=== PATIENT | male | born 1960 | race Caucasian/White ===

== ENCOUNTER 2017-09-27 19:07 | Emergency (ER) | payer SELFPAY ==
[~2017-09-27] VITALS: Ht 157.5 cm; Wt 77.1 kg
[~2017-09-27 19:07] MED LIST: ACHD5005 PO; ALLP100T PO; HYDR-3729 PO; METF1000 PO; METF750T2 PO; SULF1TAB34 PO
--- OUTSIDE RECORDS SUMMARY | 2017-09-27 19:13 | XMS REPORT | Continuity of Care Document ---
Author Author Formerly [facility], [facility] Address Unknown Phone Unavailable Allergies Active Description Code Type Severity Reaction Onset Reported/Identified Relationship to Patient Clinical Status Yes No Known Drug Allergies [id number] Drug Allergy Unknown N/A 01/10/2013 Medications There is no data. Problems Date Dx Coded Attending Type Code Diagnosis Diagnosed By 01/08/2009 682.0 CELLULITIS OF THE FACE 01/08/2009 682.0 CELLULITIS OF THE FACE 01/08/2009 SHARA BURRELL APRN 682.0 CELLULITIS OF THE FACE 01/08/2009 682.0 CELLULITIS OF THE FACE 01/08/2009 SHARA BURRELL APRN 682.0 CELLULITIS OF THE FACE 01/08/2009 682.0 CELLULITIS OF THE FACE 01/08/2009 682.0 CELLULITIS OF THE FACE 01/08/2009 682.0 CELLULITIS OF THE FACE 01/08/2009 682.0 CELLULITIS OF THE FACE 01/08/2009 682.0 CELLULITIS OF THE FACE 01/08/2009 RUPESH SINGH DO 682.0 CELLULITIS OF THE FACE 01/08/2009 SHARA BURRELL APRN 682.0 CELLULITIS OF THE FACE 01/08/2009 SHARA BURRELL APRN 682.0 CELLULITIS OF THE FACE 01/08/2009 682.0 CELLULITIS OF THE FACE 01/28/2011 719.41 PAIN IN JOINT INVOLVING SHOULDER REGION 01/28/2011 719.41 PAIN IN JOINT INVOLVING SHOULDER REGION 01/28/2011 SHARA BURRELL APRN 719.41 PAIN IN JOINT INVOLVING SHOULDER REGION 01/28/2011 719.41 PAIN IN JOINT INVOLVING SHOULDER REGION 01/28/2011 SHARA BURRELL APRN 719.41 PAIN IN JOINT INVOLVING SHOULDER REGION 01/28/2011 719.41 PAIN IN JOINT INVOLVING SHOULDER REGION 01/28/2011 719.41 PAIN IN JOINT INVOLVING SHOULDER REGION 01/28/2011 719.41 PAIN IN JOINT INVOLVING SHOULDER REGION 01/28/2011 719.41 PAIN IN JOINT INVOLVING SHOULDER REGION 01/28/2011 719.41 PAIN IN JOINT INVOLVING SHOULDER REGION 01/28/2011 RUPESH SINGH DO 719.41 PAIN IN JOINT INVOLVING SHOULDER REGION 01/28/2011 SHARA BURRELL APRN 719.41 PAIN IN JOINT INVOLVING SHOULDER REGION 01/28/2011 SHARA BURRELL APRN 719.41 PAIN IN JOINT INVOLVING SHOULDER REGION 01/28/2011 719.41 PAIN IN JOINT INVOLVING SHOULDER REGION 07/08/2011 250.00 DIABETES II CONTROLLED (UNCOMPLICATED) 07/08/2011 300.00 ANXIETY UNSPEC 07/08/2011 250.00 DIABETES II CONTROLLED (UNCOMPLICATED) 07/08/2011 300.00 ANXIETY UNSPEC 07/08/2011 SHARA BURRELL APRN 250.00 DIABETES II CONTROLLED (UNCOMPLICATED) 07/08/2011 SHARA BURRELL APRN 300.00 ANXIETY UNSPEC 07/08/2011 250.00 DIABETES II CONTROLLED (UNCOMPLICATED) 07/08/2011 300.00 ANXIETY UNSPEC 07/08/2011 SHARA BURRELL APRN 250.00 DIABETES II CONTROLLED (UNCOMPLICATED) 07/08/2011 SHARA BRURELL APRN 300.00 ANXIETY UNSPEC 07/08/2011 250.00 DIABETES II CONTROLLED (UNCOMPLICATED) 07/08/2011 300.00 ANXIETY UNSPEC 07/08/2011 250.00 DIABETES II CONTROLLED (UNCOMPLICATED) 07/08/2011 300.00 ANXIETY UNSPEC 07/08/2011 250.00 DIABETES II CONTROLLED (UNCOMPLICATED) 07/08/2011 300.00 ANXIETY UNSPEC 07/08/2011 250.00 DIABETES II CONTROLLED (UNCOMPLICATED) 07/08/2011 300.00 ANXIETY UNSPEC 07/08/2011 250.00 DIABETES II CONTROLLED (UNCOMPLICATED) 07/08/2011 300.00 ANXIETY UNSPEC 07/08/2011 RUPESH SINGH DO 250.00 DIABETES II CONTROLLED (UNCOMPLICATED) 07/08/2011 RUPESH SINGH DO 300.00 ANXIETY UNSPEC 07/08/2011 SHARA BURRELL APRN 250.00 DIABETES II CONTROLLED (UNCOMPLICATED) 07/08/2011 SHARA BURRELL APRN 300.00 ANXIETY UNSPEC 07/08/2011 SHARA BURRELL APRN 250.00 DIABETES II CONTROLLED (UNCOMPLICATED) 07/08/2011 SHARA BURRELL APRN 300.00 ANXIETY UNSPEC 07/08/2011 250.00 DIABETES II CONTROLLED (UNCOMPLICATED) 07/08/2011 300.00 ANXIETY UNSPEC 09/19/2012 274.9 GOUT 09/19/2012 296.90 MOOD DISORDER 09/19/2012 477.9 RHINITIS 09/19/2012 SHARA BURRELL APRN T 274.9 GOUT 09/19/2012 SHARA BURRELL APRN T 296.90 MOOD DISORDER 09/19/2012 SHARA BURRELL APRN 477.9 RHINITIS 09/19/2012 274.9 GOUT 09/19/2012 296.90 MOOD DISORDER 09/19/2012 477.9 RHINITIS 09/19/2012 SHARA BURRELL APRN T 274.9 GOUT 09/19/2012 SHARA BURRELL APRN T 296.90 MOOD DISORDER 09/19/2012 SHARA BURRELL APRN 477.9 RHINITIS 09/19/2012 274.9 GOUT 09/19/2012 296.90 MOOD DISORDER 09/19/2012 477.9 RHINITIS 09/19/2012 274.9 GOUT 09/19/2012 296.90 MOOD DISORDER 09/19/2012 477.9 RHINITIS 09/19/2012 274.9 GOUT 09/19/2012 296.90 MOOD DISORDER 09/19/2012 477.9 RHINITIS 09/19/2012 274.9 GOUT 09/19/2012 296.90 MOOD DISORDER 09/19/2012 477.9 RHINITIS 09/19/2012 274.9 GOUT 09/19/2012 296.90 MOOD DISORDER 09/19/2012 477.9 RHINITIS 09/19/2012 SINGH DO, RUPESH K 274.9 GOUT 09/19/2012 SINGH DO, RUPESH K 296.90 MOOD DISORDER 09/19/2012 SINGH DO, RUPESH K 477.9 RHINITIS 09/19/2012 SHARA BURRELL APRN T 274.9 GOUT 09/19/2012 SHARA BURRELL APRN T 296.90 MOOD DISORDER 09/19/2012 SHARA BURRELL APRN T 477.9 RHINITIS 09/19/2012 SHARA BURRELL APRN T 274.9 GOUT 09/19/2012 SHARA BURRELL APRN 296.90 MOOD DISORDER 09/19/2012 SHARA BURRELL APRN 477.9 RHINITIS 10/19/2012 780.93 MEMORY LOSS 10/19/2012 786.05 SHORTNESS OF BREATH 10/19/2012 SHARA BURRELL APRN 780.93 MEMORY LOSS 10/19/2012 SHARA BURRELL APRN 786.05 SHORTNESS OF BREATH 10/19/2012 780.93 MEMORY LOSS 10/19/2012 786.05 SHORTNESS OF BREATH 10/19/2012 780.93 MEMORY LOSS 10/19/2012 786.05 SHORTNESS OF BREATH 10/19/2012 780.93 MEMORY LOSS 10/19/2012 786.05 SHORTNESS OF BREATH 10/19/2012 780.93 MEMORY LOSS 10/19/2012 786.05 SHORTNESS OF BREATH 10/19/2012 780.93 MEMORY LOSS 10/19/2012 786.05 SHORTNESS OF BREATH 10/19/2012 RUPESH SINGH DO 780.93 MEMORY LOSS 10/19/2012 RUPESH SINGH DO 786.05 SHORTNESS OF BREATH 10/19/2012 SHARA BURRELL APRN 780.93 MEMORY LOSS 10/19/2012 SHARA BURRELL APRN 786.05 SHORTNESS OF BREATH 10/19/2012 SHARA BURRELL APRN 780.93 MEMORY LOSS 10/19/2012 SHARA BURRELL APRN 786.05 SHORTNESS OF BREATH 12/16/2012 780.57 SLEEP APNEA 12/16/2012 780.57 SLEEP APNEA 12/16/2012 780.57 SLEEP APNEA 12/16/2012 780.57 SLEEP APNEA 12/16/2012 780.57 SLEEP APNEA 12/16/2012 RUPESH SINGH DO 780.57 SLEEP APNEA 12/16/2012 SHARA BURRELL APRN 780.57 SLEEP APNEA 12/16/2012 SHARA BURRELL APRN 780.57 SLEEP APNEA 01/10/2013 SHARA BURRELL [employer] INST[employer] Ot 327.23 OBSTRUCTIVE SLEEP APNEA (ADULT) (PEDIATR 01/11/2013 CYDNEY CASTELLANOS DO Ot 780.2 SYNCOPE AND COLLAPSE 01/11/2013 CYDNEY CASTELLANOS DO Ot 780.39 OTHER CONVULSIONS 01/16/2013 244.9 HYPOTHYROIDISM 01/16/2013 244.9 HYPOTHYROIDISM 01/16/2013 244.9 HYPOTHYROIDISM 01/16/2013 244.9 HYPOTHYROIDISM 01/16/2013 RUPESH SINGH DO 244.9 HYPOTHYROIDISM 01/16/2013 SHARA BURRELL APRN 244.9 HYPOTHYROIDISM 01/16/2013 SHARA BURRELL APRN 244.9 HYPOTHYROIDISM 02/01/2013 304.40 AMPHETAMINE DEPENDENCE 02/01/2013 304.40 AMPHETAMINE DEPENDENCE 02/01/2013 304.40 AMPHETAMINE DEPENDENCE 02/01/2013 RUPESH SINGH DO 304.40 AMPHETAMINE DEPENDENCE 02/01/2013 SHARA BURRELL APRN 304.40 AMPHETAMINE DEPENDENCE 02/01/2013 SHARA BURRELL APRN 304.40 AMPHETAMINE DEPENDENCE 02/17/2013 294.9 OR COG DIS NOS 02/17/2013 294.9 OR COG DIS NOS 02/17/2013 RUPESH SINGH DO 294.9 OR COG DIS NOS 02/17/2013 SHARA BURRELL APRN 294.9 OR COG DIS NOS 02/17/2013 SHARA BURRELL APRN 294.9 OR COG DIS NOS 02/28/2013 726.71 ACHILLES BURSITIS OR TENDINITIS 02/28/2013 RUPESH SINGH DO 726.71 ACHILLES BURSITIS OR TENDINITIS 02/28/2013 SHARA BURRELL APRN 726.71 ACHILLES BURSITIS OR TENDINITIS 02/28/2013 SHARA BURRELL APRN 726.71 ACHILLES BURSITIS OR TENDINITIS 04/21/2013 716.90 ARTHRITIS/ ARTHROPATHY, UNSPECIFIED 04/21/2013 RUPESH SINGH DO 716.90 ARTHRITIS/ ARTHROPATHY, UNSPECIFIED 04/21/2013 SHARA BURRELL APRN 716.90 ARTHRITIS/ ARTHROPATHY, UNSPECIFIED 04/21/2013 SHARA BURRELL APRN 716.90 ARTHRITIS/ ARTHROPATHY, UNSPECIFIED 05/11/2013 SHARA BURRELL [facility] Ot 327.23 OBSTRUCTIVE SLEEP APNEA (ADULT) (PEDIATR 06/09/2013 RUPESH SINGH DO 327.23 SLEEP APNEA, OBSTRUCTIVE (ADULT/PED) 06/09/2013 SHARA BURRELL APRN 327.23 SLEEP APNEA, OBSTRUCTIVE (ADULT/PED) 06/09/2013 SHARA BURRELL APRN 327.23 SLEEP APNEA, OBSTRUCTIVE (ADULT/PED) 02/15/2015 Ot 250.00 02/15/2015 Ot 780.93 08/06/2016 Ot 250.00 DIAB MANNIE WO COMPL, TYPE II OR UNSPEC TY 08/06/2016 Ot 780.93 MEMORY LOSS 08/06/2016 SYEDA MARTÍNEZ MD ([facility]) Ot 275.49 OTH DISORD/CALCIUM METABOLISM 08/06/2016 SYEDA MARTÍNEZ MD ([facility]) Ot 712.36 CHONDROCALCIN NOS-L/LEG 08/06/2016 SYEDA MARTÍNEZ MD ([facility]) Ot 715.31 LOC OSTEOARTH NOS-SHLDER 08/06/2016 SYEDA MARTÍNEZ MD ([facility]) Ot 715.36 LOC OSTEOARTH NOS-L/LEG 08/06/2016 SYEDA MARTÍNEZ MD ([facility]) Ot V70.3 MED EXAM NEC-ADMIN PURP 08/06/2016 Ot 250.00 DIAB MANNIE WO COMPL, TYPE II OR UNSPEC TY 08/06/2016 Ot 780.93 MEMORY LOSS 08/06/2016 SYEDA MARTÍNEZ MD ([facility]) Ot 275.49 OTH DISORD/CALCIUM METABOLISM 08/06/2016 SYEDA MARTÍNEZ MD ([facility]) Ot 712.36 CHONDROCALCIN NOS-L/LEG 08/06/2016 SYEDA MARTÍNEZ MD ([facility]) Ot 715.31 LOC OSTEOARTH NOS-SHLDER 08/06/2016 SYEDA MARTÍNEZ MD ([facility]) Ot 715.36 LOC OSTEOARTH NOS-L/LEG 08/06/2016 SYEDA MARTÍNEZ MD ([facility]) Ot V70.3 MED EXAM NEC-ADMIN PURP 08/06/2016 VANNESSA DE LEON, RICHIE Barrera Ot E11.9 TYPE 2 DIABETES MELLITUS WITHOUT COMPLIC 08/06/2016 VANNESSA DE LEON, RICHIE Barrera Ot L02.411 CUTANEOUS ABSCESS OF RIGHT AXILLA 08/07/2016 VANNESSA DE LEON, RICHIE Barrera Ot E11.9 TYPE 2 DIABETES MELLITUS WITHOUT COMPLIC 08/07/2016 VANNESSA DE LEON, RICHIE Barrera Ot L02.411 CUTANEOUS ABSCESS OF RIGHT AXILLA 08/07/2016 VANNESSA DE LEON, RICHIE Barrera Ot E11.9 TYPE 2 DIABETES MELLITUS WITHOUT COMPLIC 08/07/2016 VANNESSA DE LEON, RICHIE Barrera Ot L02.411 CUTANEOUS ABSCESS OF RIGHT AXILLA 08/23/2016 Ot 250.00 DIAB MANNIE WO COMPL, TYPE II OR UNSPEC TY 08/23/2016 Ot 780.93 MEMORY LOSS 08/23/2016 SYEDA MARTÍNEZ MD ([facility]) Ot 275.49 OTH DISORD/CALCIUM METABOLISM 08/23/2016 SYEDA MARTÍNEZ MD ([facility]) Ot 712.36 CHONDROCALCIN NOS-L/LEG 08/23/2016 SYEDA MARTÍNEZ MD ([facility]) Ot 715.31 LOC OSTEOARTH NOS-SHLDER 08/23/2016 SYEDA MARTÍNEZ MD ([facility]) Ot 715.36 LOC OSTEOARTH NOS-L/LEG 08/23/2016 SYEDA MARTÍNEZ MD ([facility]) Ot V70.3 MED EXAM NEC-ADMIN PURP 08/24/2016 VANNESSA DE LEON, RICHIE Barrera Ot E11.9 TYPE 2 DIABETES MELLITUS WITHOUT COMPLIC 08/24/2016 VANNESSA DE LEON, RICHIE Barrera Ot L02.411 CUTANEOUS ABSCESS OF RIGHT AXILLA Procedures Code Description [place] [address] ROUTINE VENIPUNCTURE 09/21/2012 39018 A1C (IN-HOUSE) 09/21/2012 03697 CBC 09/21/2012 03532 LIPID PANEL 09/21/2012 85116 CMP 09/21/2012 9240050 GFR CALC (RESULT ONLY) 09/21/2012 59684 TSH 09/21/2012 16557 URIC ACID 09/21/2012 18593 MICRO ALBUMIN-IN HOUSE 10/19/2012 96959 URINE DRUG SCREEN (IN-HOUSE ) 10/19/[address] HEAD/BRAIN W/O & W/DYE 10/20/2012 35534 XRAY CHEST 2 VIEW 10/20/2012 24613 URINE AMPHETAMINE GC/MS 10/20/2012 52851 URINE METHAMPHETAMINE GC/MS 10/20/2012 13960 SLEEP STUDY 11/28/2012 95273 ROUTINE VENIPUNCTURE 01/16/2013 39110 URINE DRUG SCREEN (IN-HOUSE ) 01/16/2013 32840 A1C (IN-HOUSE) 01/16/2013 90503 TSH 01/16/2013 03210 PSYCH DIAGNOSTIC EVALUATION 02/02/2013 53475 PSYTX PT&/FAMILY 30 MINUTES 02/21/2013 69857 PSYCHO TESTING 1 HR W TECH 02/21/2013 54405 A1C (IN-HOUSE) 04/21/2013 99537 URINE DRUG SCREEN (IN-HOUSE ) 04/21/2013 86280 ROUTINE VENIPUNCTURE 12/27/2013 18350 A1C (IN-HOUSE) 12/27/2013 30034 CBC 12/27/2013 13656 CMP 12/27/2013 34476 LIPID PANEL 12/27/2013 91479 URIC ACID 12/27/2013 3205990 GFR CALC (RESULT ONLY) 12/27/2013 06386 MICRO ALBUMIN-IN HOUSE 12/27/2013 62310 TSH 12/27/2013 Psychiatr [facility], [facility] 01/01/2014 Results Test Result Range Methicillin resistant Staphylococcus aureus (MRSA) screening culture - 12:25 Methicillin resistant Staphylococcus aureus (MRSA) screening culture NEG NRG Capillary blood glucose measurement by glucometer (mass/volume) - 08/06/16 12: 36 Capillary blood glucose measurement by glucometer (mass/volume) 167 mg/dL 70-110 Urine drug screening test - 08/06/16 13:35 Urine phencyclidine detection by screening method NEGATIVE NEGATIVE Urine benzodiazepines detection by screening method NEGATIVE NEGATIVE Urine cocaine detection NEGATIVE NEGATIVE Urine amphetamines detection by screening method POSITIVE NEGATIVE Urine methamphetamine detection by screening method POSITIVE NEGATIVE Urine cannabinoids detection by screening method POSITIVE NEGATIVE Urine opiates detection by screening method POSITIVE NEGATIVE Urine barbiturates detection NEGATIVE NEGATIVE Screening urine tricyclic antidepressants detection NEGATIVE NEGATIVE Urine methadone detection by screening method NEGATIVE NEGATIVE Urine oxycodone detection NEGATIVE NEGATIVE Urine propoxyphene detection NEGATIVE NEGATIVE Bacteria identification in isolate by anaerobe culture - 08/06/16 15:00 Bacteria identification in isolate by anaerobe culture NOANA NRG Gram stain microscopy - 08/06/16 15:00 GRAM STAIN RESULT MODERATE # WBC'S, NO BACTERIA OBSERVED NRG Bacteria identification in wound by culture - 08/06/16 15:00 Bacteria identification in wound by culture NG NRG Encounters ACCT No. Visit Date/Time Discharge Status Pt. Type Provider Facility Loc./Unit Complaint [id number] 12/27/2013 10:12:00 12/27/2013 23:59:59 CLS Outpatient INDRA URIAS SHARA Sean [id number] 08/29/2013 08:05:00 08/29/2013 23:59:59 CLS Outpatient SHARA BURRELL APRN [id number] 06/09/2013 09:05:00 06/09/2013 23:59:59 CLS Outpatient RUPESH SINGH DO [id number] 11/09/2012 17:28:00 11/09/2012 23:59:59 CLS Outpatient SHARA BURRELL APRN [id number] 10/19/2012 16:11:00 10/19/2012 23:59:59 CLS Outpatient [id number] 09/21/2012 07:52:00 09/21/2012 23:59:59 CLS Outpatient INDRA URIAS SHARA Sean [id number] 09/19/2012 11:30:00 09/19/2012 23:59:59 CLS Outpatient [id number] 07/08/2011 10:42:00 07/08/2011 23:59:59 CLS Outpatient [id number] 07/08/2011 10:42:00 07/08/2011 23:59:59 CLS Outpatient [id number] 04/21/2013 09:50:00 Document Registration [id number] 02/20/2013 15:53:00 Document Registration [id number] 02/01/2013 13:12:00 Document Registration [id number] 01/16/2013 10:50:00 Document Registration [id number] 11/28/2012 00:00:00 Document Registration [id number] 08/06/2016 12:09:00 08/06/2016 17:00:00 DIS Outpatient VANNESSA DE LEON, RICHIE Barrera [facility] SDC RIGHT AXILLARY ABSCESS [id number] 02/15/2015 12:17:00 02/15/2015 23:59:59 CLS Outpatient TANYA DE LEON, SYEDA Weber (DDU) [facility] RAD DDU [id number] 05/10/2013 20:56:00 05/11/2013 07:00:00 DIS Outpatient SHARA BURRELL [facility] SLEEP TJ,SNORING [id number] 01/10/2013 22:10:00 01/11/2013 00:17:00 DIS Emergency JASMIN CYDNEY MICHELLE K [facility] ER SEIZURE [id number] 01/10/2013 21:07:00 01/10/2013 22:00:00 DIS Outpatient SHARA BURRELL [facility] SLEEP SLEEP APNEA [id number] 10/27/2012 09:21:00 Document Registration
[2017-09-27] MEDS ORDERED: ACETAMINOPHEN 500 MG TAB (TYLENOL) PO STA (21:15)
[2017-09-27] MEDS ORDERED: RT-ALBUTEROL SULF 2.5 MG/3 ML PRE-MIX VIAL INH STA (21:15)
[2017-09-27] MEDS ORDERED: NS IV 1000 ML 1,000 ML IV ONE ×2 (21:15→22:23)
--- NOTE | 2017-09-27 21:19 | ED Cough/URI ---
General Chief Complaint: Cough/Cold/Flu Symptoms Stated Complaint: FLU SYMPTOMS X1 WEEK Nursing Triage Note: PT REPORTS COUGH/COLD/BODY ACHES, FEVER X 3-4 DAYS. PT ALSO REPORTS BACK PAIN. Source: patient, family Exam Limitations: no limitations History of Present Illness Date Seen by Provider: Sep 27, 2017 Time Seen by Provider: 20:59 Initial Comments 57 yo male patient presents to the ED with c/o cough, congestion, wheezing, bodyaches, and fever for the last 3-4 days. Also c/o back pain, frequency of urination, and elevated blood sugars. patient states he has been using his friends metformin, but has not seen his practitioner for approximately 3 years. Patient states he is supposed to use a CPAP, BUT DOES NOT USE ONE. Timing/Duration: constant, other (3-4 days) Severity/Quality: productive cough (clear productive cough) Prior Episodes/Possible Cause: no prior episodes Modifying Factors: Worse With Coughing Allergies and Home Medications Allergies Coded Allergies: No Known Drug Allergies (Unverified , 01/10/13) Home Medications Hydrocodone Bit/Acetaminophen 1 Each Tablet, 1-2 TAB PO 4-6HR PRN for PAIN, #20 Prescribed by: RICHIE HURD on 08/06/16 1508 Hydrocodone/Acetaminophen 1 Each Tablet, 1 EACH PO Q4H PRN for PAIN, (Reported) Metformin HCl 1,000 Mg Tablet, 1,000 MG PO BID, (Reported) Sulfamethoxazole/Trimethoprim 1 Each Tablet, 1 EACH PO BID, (Reported) Constitutional: see HPI, chills, fever, malaise EENTM: see HPI, nose congestion, throat pain, other (rhinorrhea and sneezing), No ear discharge, No ear pain Respiratory: cough, No dyspnea on exertion, phlegm, short of breath ( occasional sob), wheezing Cardiovascular: No chest pain, No edema, No palpitations, No syncope Gastrointestinal: No abdominal pain, No constipation, No diarrhea, loss of appetite, No nausea, No vomiting Genitourinary: see HPI, No decreased output, No dysuria, frequency, No hematuria, No pain Musculoskeletal: see HPI, back pain, other (generalized body aches) Skin: no symptoms reported Psychiatric/Neurological: Headache, Denies Numbness, Denies Paresthesia, Denies Tingling, Denies Weakness (denies one-sided weakness) All Other Systems Reviewed Negative Unless Noted: Yes (Negative excepted noted.) Past Crwimbc-Amtagu-Xfccko Hx Patient Social History Alcohol Use: Past History Recreational Drug Use: No Smoking Status: Current Everyday Smoker Type Used: Cigarettes Recent Foreign Travel: No Contact w/Someone Who Travel: No Recent Infectious Disease Expo: No Recent Hopitalizations: No Physical Abuse: No Sexual Abuse: No Mistreated: No Fear: No Surgeries History of Surgeries: Yes (CHEST-TUBE, SKULL FX, L KNEE) Respiratory History of Respiratory Disorde: Yes (LEFT LUNG SCARRED FROM PNEUMONIA) Respiratory Disorders: Sleep Apnea, COPD Currently Using CPAP: No Cardiovascular History of Cardiac Disorders: No Neurological History of Neurological Disord: Yes Gastrointestinal History of Gastrointestinal Di: Yes Gastrointestinal Disorders: Gastroesophageal Reflux, Hepatitis Musculoskeletal History of Musculoskeletal Dis: Yes (CHRONIC BILATERAL SHOULDER PAIN,LEFT KNEE PAIN) Musculoskeletal Disorders: Chronic Back Pain, Gout Endocrine History of Endocrine Disorders: Yes Endocrine Disorders: Hypothyroidsim, Diabetes, Non-Insulin dep Cancer History of Cancer: No Psychosocial History of Psychiatric Problem: Yes Behavioral Health Disorders: Anxiety, Depression Suicide Risk Score: 0 Integumentary History of Skin or Integumenta: No Blood Transfusions History of Blood Disorders: No Reviewed Nursing Assessment Reviewed/Agree w Nursing PMH: Yes Family Medical History Significant Family History: No Pertinent Family Hx Physical Exam Vital Signs Vital Sign - Last 12Hours 09/27/17 19:47 Temp 99.4 Pulse 104 Resp 20 B/P (MAP) 119/98 (105) Pulse Ox 92 O2 Delivery Room Air Capillary Refill : Less Than 3 Seconds General Appearance: WD/WN, no apparent distress HEENT: PERRL/EOMI, TMs normal, pharyngeal erythema, No tonsillar exudate, other (positive nasal congestion) Neck: non-tender, full range of motion, supple, lymphadenopathy (R), lymphadenopathy (L) Respiratory: no respiratory distress, no accessory muscle use, crackles, wheezing, expiration Cardiovascular: normal peripheral pulses, no edema, no murmur, tachycardia Gastrointestinal: normal bowel sounds, non tender, soft, no organomegaly, no pulsatile mass, No distended Extremities: no pedal edema, no calf tenderness, normal capillary refill Neurologic/Psychiatric: hydraulics engineer II-XII nml as tested, no motor/sensory deficits, alert, normal mood/affect, oriented x 3 Skin: normal color, warm/dry Progress/Results/Core Measures Suspected Sepsis Recent Fever Within 48 Hours: No Infection Criteria Present: Suspected New Infection New/Unexplained Altered Menta: No Sepsis Screen: No Definite Risk Sepsis Diagnosis: SIRS Temperature:99.4 Pulse: 104 Respiratory Rate: 20 Laboratory Tests 09/27/17 21:45: White Blood Count 9.7 Blood Pressure 119 /98 Mean: 105 Laboratory Tests 09/27/17 21:45: Creatinine 0.73, Platelet Count 221, Total Bilirubin 0.5 Results/Orders Lab Results Laboratory Tests Test 09/27/17 21:45 Range/Units White Blood Count 9.7 4.3-11.0 10^3/uL Red Blood Count 4.81 4.35-5.85 10^6/uL Hemoglobin 14.6 13.3-17.7 G/DL Hematocrit 41 40-54 % Mean Corpuscular Volume 85 80-99 FL Mean Corpuscular Hemoglobin 30 25-34 PG Mean Corpuscular Hemoglobin Concent 36 32-36 G/DL Red Cell Distribution Width 12.3 10.0-14.5 % Platelet Count 221 130-400 10^3/uL Mean Platelet Volume 9.9 7.4-10.4 FL Neutrophils (%) (Auto) 78 H 42-75 % Lymphocytes (%) (Auto) 15 12-44 % Monocytes (%) (Auto) 7 0-12 % Eosinophils (%) (Auto) 0 0-10 % Basophils (%) (Auto) 0 0-10 % Neutrophils # (Auto) 7.6 1.8-7.8 X 10^3 Lymphocytes # (Auto) 1.4 1.0-4.0 X 10^3 Monocytes # (Auto) 0.7 0.0-1.0 X 10^3 Eosinophils # (Auto) 0.0 0.0-0.3 10^3/uL Basophils # (Auto) 0.0 0.0-0.1 10^3/uL Sodium Level 128 L 135-145 MMOL/L Potassium Level 4.0 3.6-5.0 MMOL/L Chloride Level 95 L 98-107 MMOL/L Carbon Dioxide Level 21 21-32 MMOL/L Anion Gap 12 5-14 MMOL/L Blood Urea Nitrogen 9 7-18 MG/DL Creatinine 0.73 0.60-1.30 MG/DL Estimat Glomerular Filtration Rate > 60 BUN/Creatinine Ratio 12 Glucose Level 250 H 70-105 MG/DL Calcium Level 8.6 8.5-10.1 MG/DL Total Bilirubin 0.5 0.1-1.0 MG/DL Aspartate Amino Transf (AST/SGOT) 24 5-34 U/L Alanine Aminotransferase (ALT/SGPT) 26 0-55 U/L Alkaline Phosphatase 107 40-136 U/L Total Protein 7.1 6.4-8.2 GM/DL Albumin 3.5 3.2-4.5 GM/DL Micro Results Microbiology 09/27/17 Influenza Types A,B Antigen (MELLO) - Final, Complete My Orders Orders - MIRIAM HARMON Cbc With Automated Diff (09/27/17 21:15) Comprehensive Metabolic Panel (09/27/17 21:15) Ua Culture If Indicated (09/27/17 21:15) Accucheck Stat ONCE (09/27/17 21:15) Saline Lock/Iv-Start (09/27/17 21:15) Albuterol Pre-Mix Nebs (Rt) (Proventil (09/27/17 21:15) Chest 1 View, Ap/Pa Only (09/27/17 21:15) Ns Iv 1000 Ml (Sodium Chloride 0.9%) (09/27/17 21:15) Acetaminophen Tablet (Tylenol Tablet) (09/27/17 21:15) Svn Sm Volume Nebulizer Rt-Rfs (09/27/17 21:15) Ns Iv 1000 Ml (Sodium Chloride 0.9%) (09/27/17 22:23) Medications Given in ED Current Medications Medications Dose Ordered Sig/Oanh Route Start Time Stop Time Status Last Admin Dose Admin Sodium Chloride 1,000 ml @ 0 mls/hr Q0M ONCE IV 09/27/17 21:15 09/27/17 21:19 DC 09/27/17 21:46 0 MLS/HR Vital Signs/I&O Vital Sign - Last 12Hours 09/27/17 09/27/17 09/27/17 19:47 19:47 21:53 Temp 99.4 Pulse 104 Resp 20 B/P (MAP) 119/98 (105) Pulse Ox 92 94 O2 Delivery Room Air Room Air Capillary Refill : Less Than 3 Seconds Blood Pressure Mean: 105 Diagnostic Imaging Diagonstic Imaging: Xray Plain Films/CT/US/NM/MRI: chest Departure Impression Impression: Primary Impression: Influenza A Additional Impressions: Uncontrolled diabetes mellitus Hyponatremia Disposition: 01 HOME, SELF-CARE Condition: Improved Departure-Patient Inst. Decision time for Depature: 22:40 Referrals: NO,LOCAL PHYSICIAN (PCP/Family) Primary Care Physician Patient Instructions: Diabetes Diet , Diabetes Type 2 (DC), Flu, Adult (DC) Add. Discharge Instructions: All discharge instructions reviewed with patient and/or family. Voiced understanding. Medications as directed. Tylenol extra strength over-the- counter as directed for pain or fever. Ibuprofen 800 mg by mouth every 8 hours as needed for pain or fever. Cool humidifier as needed. [id number] decongestants and antihistamines as needed. Follow-up with the family practitioner of your choice this week to establish care, repeat labs, and further management. Call tomorrow morning for appointment time. Return to the emergency department for worsened symptoms, chest pain, shortness of air, headache, changes in vision, changes in behavior, slurred speech, one-sided weakness, facial drooping, or any other concerns. Work/School Note: [employer] Listing MIRIAM HARMON Sep 27, 2017 21:19
[2017-09-27 22:07] LABS: BASOPHILS % (AUTO) 0 % (0-10); EOSINOPHILS % (AUTO) 0 % (0-10); HEMATOCRIT 41 % (40-54); HEMOGLOBIN 14.6 G/DL (13.3-17.7); LYMPHOCYTES # (AUTO) 1.4 X 10^3 (1.0-4.0); LYMPHOCYTES % (AUTO) 15 % (12-44); MEAN CORPUSCULAR HEMOGLOBIN 30 PG (25-34); MEAN CORPUSCULAR HGB CONC 36 G/DL (32-36); MEAN CORPUSCULAR VOLUME 85 FL (80-99); MEAN PLATELET VOLUME 9.9 FL (7.4-10.4); MONOCYTES # (AUTO) 0.7 X 10^3 (0.0-1.0); MONOCYTES % (AUTO) 7 % (0-12); NEUTROPHILS # (AUTO) 7.6 X 10^3 (1.8-7.8); NEUTROPHILS % (AUTO) 78 % (42-75); PLATELET COUNT 221 10^3/uL (130-400); RED BLOOD COUNT 4.81 10^6/uL (4.35-5.85); RED CELL DISTRIBUTION WIDTH 12.3 % (10.0-14.5); WHITE BLOOD COUNT 9.7 10^3/uL (4.3-11.0)
[2017-09-27 22:21] LABS: ALANINE AMINOTRANSFERASE 26 U/L (0-55); ALBUMIN 3.5 GM/DL (3.2-4.5); ALKALINE PHOSPHATASE 107 U/L (40-136); BILIRUBIN,TOTAL 0.5 MG/DL (0.1-1.0); BUN/CREATININE RATIO 12; CALCIUM 8.6 MG/DL (8.5-10.1); CARBON DIOXIDE 21 MMOL/L (21-32); CHLORIDE 95 MMOL/L (98-107); CREATININE SERUM 0.73 MG/DL (0.60-1.30); GFR ESTIMATED > 60; GLUCOSE 250 MG/DL (70-105); SODIUM 128 MMOL/L (135-145); TOTAL PROTEIN 7.1 GM/DL (6.4-8.2)
[2017-09-27 22:40] LABS: BILIRUBIN,URINE NEGATIVE (NEGATIVE); CLARITY,URINE CLEAR; COLOR,URINE YELLOW; GLUCOSE, URINE (UA) 3+ (NEGATIVE); KETONES,URINE NEGATIVE (NEGATIVE); LEUKOCYTE ESTERASE ,URINE NEGATIVE (NEGATIVE); NITRITE,URINE NEGATIVE (NEGATIVE); PH,URINE 7 (5-9); PROTEIN,URINE 1+ (NEGATIVE); UROBILINOGEN,URINE NORMAL (NORMAL)
[2017-09-27 22:51] LABS: SQUAMOUS EPITHELIAL CELL,UR 0-2 /HPF
[2017-09-27] MEDS ORDERED: RX-ALBUTEROL INHALER (PROAIR) 8 GM IH STA (23:24)
[2017-09-27] MEDS ORDERED: METF1000 PO (23:26)
[2017-09-27] MEDS ORDERED: BENZ-13 PO (23:27)
[2017-09-27 23:41] VITALS: BP 120/87
--- NOTE | 2017-09-28 07:56 | Diagnostic Imaging Report ---
INDICATION: Cough and fever. Portable AP upright view of the chest is obtained. There is no previous study for comparison. FINDINGS: There is air trapping, bilaterally. Interstitial markings are prominent in both lungs. There is also prominence of central pulmonary vessels which can be related to COPD or pulmonary arterial hypertension. No pneumothorax or consolidation is identified and there is no significant pleural fluid. IMPRESSION: Findings are consistent with emphysema and probable COPD. If older studies are available, comparison would be useful. Otherwise, no definite acute abnormality is seen. Dictated by: Dictated on workstation # [id number]
== END 2017-09-27 23:41 | disposition home or self-care (01) ==
LOC: EDUNIT# 19:07 → ER 19:09
DX: J10.1 Influenza due to other identified influenza virus with other respiratory manifestations (principal); E11.9 Type 2 diabetes mellitus without complications; E87.1 Hypo-osmolality and hyponatremia; G47.30 Sleep apnea, unspecified; F41.9 Anxiety disorder, unspecified; F32.9 Major depressive disorder, single episode, unspecified; E03.9 Hypothyroidism, unspecified; M10.9 Gout, unspecified; K21.9 Gastro-esophageal reflux disease without esophagitis; J44.9 Chronic obstructive pulmonary disease, unspecified; F17.210 Nicotine dependence, cigarettes, uncomplicated; Z91.14 Patient's other noncompliance with medication regimen; Z87.01 Personal history of pneumonia (recurrent); Z79.84 Long term (current) use of oral hypoglycemic drugs; Z86.19 Personal history of other infectious and parasitic diseases
CPT/HCPCS: 36415; 71045; 80053; 81000; 85025; 87804; 94640; 96360

== ENCOUNTER → 2019-06-28 | Outpatient (CLI) | payer OTHER ==
[~2019-06-28] MED LIST changes: +BENZ100C18 PO; +METF-399 PO; -METF1000 PO
--- NOTE | 2019-06-28 16:51 | Diagnostic Imaging Report ---
INDICATION: Tobaccoism, chronic knee pain. EXAMINATION: PA and lateral chest. FINDINGS: Heart size and pulmonary vascularity are normal. Lungs are clear. There are no effusions or pneumothoraces. There is apical pleural scarring. IMPRESSION: Apical pleural scarring. No acute abnormality is seen in the chest. No significant change when compared to 09/27/2017. Dictated by: Dictated on workstation # [id number]
--- NOTE | 2019-06-28 17:01 | Diagnostic Imaging Report ---
EXAMINATION: Right knee radiographs, 3 views. Left knee radiographs, 3 views. COMPARISON: February 15, 2015. HISTORY: 59-year-old male, chronic bilateral knee pain. FINDINGS: There is chondrocalcinosis. The bones appear somewhat demineralized. There is severe patellofemoral compartment joint space loss on the left. There is no left knee joint effusion. There is mild right patellofemoral compartment joint space loss and mild narrowing of the right medial compartment. The additional joint compartments of the left knee are not significantly narrowed. There is no right knee joint effusion. There is no identified acute fracture. IMPRESSION: 1. Chondrocalcinosis which has multiple associations including calcium pyrophosphate dihydrate deposition disease. 2. There is severe and relatively isolated left patellofemoral compartment arthritis without left knee joint effusion which can be seen with CPPD. 3. Mild right medial and patellofemoral compartment arthritis. 4. The bones appear demineralized. Dictated by: Dictated on workstation # [id number]
== END ==
LOC: RT 14:30
PROVIDERS: ATTEND Surgery
DX: Z02.71 Encounter for disability determination (principal); J98.4 Other disorders of lung; M17.0 Bilateral primary osteoarthritis of knee; M11.262 Other chondrocalcinosis, left knee; M11.261 Other chondrocalcinosis, right knee
CPT/HCPCS: 71046; 94060

== ENCOUNTER 2022-08-17 13:08 | Emergency (ER) | payer SELFPAY ==
[~2022-08-17] VITALS: Ht 175.3 cm; Wt 72.5 kg
[2022-08-17] MEDS ORDERED: ONDANSETRON 4 MG/2 ML (SDV) Z0FRAN IVP ONE (14:15)
[2022-08-17] MEDS ORDERED: KETOROLAC 30 MG/ML VIAL IVP ONE (14:15)
--- NOTE | 2022-08-17 14:18 | ED Abdominal Pain ---
General Chief Complaint: Abdominal/GI Problems Stated Complaint: STOMACH AILMENT Nursing Triage Note: PT AMB TO TRIAGE WITH COMPLAINT OF ABD PAIN. STATES HE FEELS HE IS CONSTIPATED AND FULL UP TO HIS STOMACH. STATES ABD PAIN IS CAUSING HIM TO BE SOA. LAST USED METH 3-4 DAYS AGO. Source of Information: Patient Allergies and Home Medications Allergies Coded Allergies: No Known Drug Allergies (Unverified , 01/10/13) Patient Home Medication List Benzonatate (Tessalon Perles) 100 Mg Capsule, 100 MG PO Q8H PRN for COUGH Prescribed by: MIRIAM HARMON on 09/27/17 2327 Hydrocodone Bit/Acetaminophen (Lortab 5 Mg Tablet) 1 Each Tablet, 1-2 TAB PO 4- 6HR PRN for PAIN Prescribed by: RICHIE HURD on 08/06/16 1508 Hydrocodone/Acetaminophen (Lortab 5-325 mg Tablet) 1 Each Tablet, 1 EACH PO Q4H PRN for PAIN, (Reported) Entered as Reported by: BENITA MOSQUEDA on 08/06/16 1333 Metformin HCl (Metformin HCl) 1,000 Mg Tablet, 1,000 MG PO BID, (Reported) Entered as Reported by: BENITA MOSQUEDA on 08/06/16 1333 Metformin HCl (Metformin HCl) 1,000 Mg Tablet, 1,000 MG PO BID Prescribed by: MIRIAM HARMON on 09/27/17 2326 Sulfamethoxazole/Trimethoprim (Bactrim 400-80 mg Tablet) 1 Each Tablet, 1 EACH PO BID, (Reported) Entered as Reported by: BENITA MOSQUEDA on 08/06/16 1333 Past Qmxkebz-Kalvyl-Uldxlm Hx Patient Social History Tobacco Use?: Yes Tobacco type used: Cigarettes Smoking Status: Current Everyday Smoker Use of E-Cig and/or Vaping dev: No Substance use?: Yes Substance type: Methamphetamine Alcohol Use?: Yes Alcohol Frequency: Daily Pt feels they are or have been: No Immunizations Up To Date First/Initial COVID19 Vaccinat: NO Past Medical History Surgeries: Yes (CHEST-TUBE, SKULL FX, L KNEE) Respiratory: Yes (LEFT LUNG SCARRED FROM PNEUMONIA) Sleep Apnea, COPD Currently Using CPAP: No Cardiac: No Neurological: Yes Gastrointestinal: Yes Gastroesophageal Reflux, Hepatitis Musculoskeletal: Yes (CHRONIC BILATERAL SHOULDER PAIN,LEFT KNEE PAIN) Chronic Back Pain, Gout Endocrine: Yes Hypothyroidsim, Diabetes, Non-Insulin dep Cancer: No Psychosocial: Yes Anxiety, Depression Integumentary: No Blood Disorders: No Family Medical History No Pertinent Family Hx Physical Exam Vital Signs Vital Signs - First Documented 08/17/22 13:27 Temp 36.5 Pulse 105 Resp 22 B/P (MAP) 101/57 (72) Pulse Ox 97 O2 Delivery Room Air Capillary Refill : Less Than 3 Seconds Height/Weight/BMI Height: 5'2.00" Weight: 170lbs. 0.0oz. [id number]; 23.00 BMI Method:Stated Progress/Results/Core Measures Results/Orders Lab Results Laboratory Tests Test 08/17/22 14:05 08/17/22 14:21 Range/Units White Blood Count 11.9 H 4.3-11.0 10^3/uL Red Blood Count 5.61 H 4.30-5.52 10^6/uL Hemoglobin 17.2 13.3-17.7 g/dL Hematocrit 48 40-54 % Mean Corpuscular Volume 86 80-99 fL Mean Corpuscular Hemoglobin 31 25-34 pg Mean Corpuscular Hemoglobin Concent 36 32-36 g/dL Red Cell Distribution Width 11.7 10.0-14.5 % Platelet Count 347 130-400 10^3/uL Mean Platelet Volume 10.1 9.0-12.2 fL Immature Granulocyte % (Auto) 1 % Neutrophils (%) (Auto) 69 42-75 % Lymphocytes (%) (Auto) 23 12-44 % Monocytes (%) (Auto) 7 0-12 % Eosinophils (%) (Auto) 1 0-10 % Basophils (%) (Auto) 0 0-10 % Neutrophils # (Auto) 8.2 H 1.8-7.8 10^3/uL Lymphocytes # (Auto) 2.7 1.0-4.0 10^3/uL Monocytes # (Auto) 0.9 0.0-1.0 10^3/uL Eosinophils # (Auto) 0.1 0.0-0.3 10^3/uL Basophils # (Auto) 0.0 0.0-0.1 10^3/uL Immature Granulocyte # (Auto) 0.1 0.0-0.1 10^3/uL Sodium Level 133 L 135-145 MMOL/L Potassium Level 4.2 3.6-5.0 MMOL/L Chloride Level 96 L 98-107 MMOL/L Carbon Dioxide Level 22 21-32 MMOL/L Anion Gap 15 H 5-14 MMOL/L Blood Urea Nitrogen 15 7-18 MG/DL Creatinine 0.84 0.60-1.30 MG/DL Estimat Glomerular Filtration Rate 99 BUN/Creatinine Ratio 18 Glucose Level 247 H 70-105 MG/DL Calcium Level 10.5 H 8.5-10.1 MG/DL Corrected Calcium 10.2 H 8.5-10.1 MG/DL Total Bilirubin 0.8 0.1-1.0 MG/DL Aspartate Amino Transf (AST/SGOT) 33 5-34 U/L Alanine Aminotransferase (ALT/SGPT) 46 0-55 U/L Alkaline Phosphatase 128 40-136 U/L Total Protein 8.5 H 6.4-8.2 GM/DL Albumin 4.4 3.2-4.5 GM/DL Influenza Type A (RT-PCR) Not Detected Not Detecte Influenza Type B (RT-PCR) Not Detected Not Detecte SARS-CoV-2 RNA (RT-PCR) Detected H Not Detecte My Orders Orders - DIOR VALLECILLO APRN Acute Abd Series (08/17/22 14:09) Cbc With Automated Diff (08/17/22 14:09) Comprehensive Metabolic Panel (08/17/22 14:09) Ua Culture If Indicated (08/17/22 14:09) Drug Screen Stat (Urine) (08/17/22 14:09) Covid 19 Inhouse Test (08/17/22 14:09) Influenza A And B By Pcr (08/17/22 14:09) Ondansetron Injection (Zofran Injectio (08/17/22 14:15) Ketorolac Injection (Toradol Injection) (08/17/22 14:15) Medications Given in ED Current Medications Medications Dose Ordered Sig/Oanh Route Start Time Stop Time Status Last Admin Dose Admin Ketorolac Tromethamine 15 mg ONCE ONCE IVP 08/17/22 14:15 08/17/22 14:16 DC 08/17/22 14:18 15 MG Ondansetron HCl 4 mg ONCE ONCE IVP 08/17/22 14:15 08/17/22 14:16 DC 08/17/22 14:18 4 MG Vital Signs/I&O 08/17/22 13:27 Temp 36.5 Pulse 105 Resp 22 B/P (MAP) 101/57 (72) Pulse Ox 97 O2 Delivery Room Air Blood Pressure Mean: 72 Diagnostic Imaging Diagonstic Imaging: Xray Comments [facility]. [place], [place] NAME: BRITNEY MENJIVAR [facility] REC#: [id number] PT STATUS: REG ER : 1960 PHYSICIAN: DIOR VALLECILLO NURSING HOME ASSISTANT ADMIT DATE: 08/17/22/ER Draft Date of Exam:08/17/22 ACUTE ABD SERIES EXAMINATION: Abdominal series and chest radiograph HISTORY: Constipation, abd pain COMPARISON: None available. FINDINGS: Heart size and pulmonary vasculature are normal. The lungs are clear without consolidation, pleural effusion, or pneumothorax. The osseous structures are intact. There is moderate amount of gas and stool throughout the colon. Nonobstructive bowel gas pattern. No radiopaque foreign body. The osseous structures are intact. IMPRESSION: No acute abnormality in the chest or abdomen. Dictated on workstation # [id number] Dict: 08/17/22 1444 Trans: 08/17/22 1445 [facility] [id number] Interpreted by: WILLARD HATFIELD DO Electronically signed by: Departure Impression Primary Impression: COVID-19 Disposition: 01 HOME, SELF-CARE Condition: Stable Departure-Patient Inst. Decision time for Depature: 14:52 Referrals: NO,LOCAL PHYSICIAN (PCP/Family) Primary Care Physician Patient Instructions: COVID-19 (DC) Add. Discharge Instructions: Plan: 1. Discharge home. 2. Stay home for 5 days and then mask when in public for additional 5 days. If you are still running fever, you will need to stay home until you are fever free. 3. Wash your hands frequently, disinfect surfaces at home. Try to isolate you rself from others in the house as much as you are able. 4. Clean areas that may have blood, stool, or body fluids on them. Tylenol and Ibuprofen as needed for pain and fever. 5. Cover your mouth and nose when you cough or sneeze, throw away tissues, and wash hands immediately. 6. Return to ER for any new, concerning, or worsening symptoms. All discharge instructions reviewed with patient and/or family. Voiced understanding. DIOR VALLECILLO NURSING HOME ASSISTANT Aug 17, 2022 14:18
[2022-08-17 14:27] LABS: BASOPHILS % (AUTO) 0 % (0-10); EOSINOPHILS # (AUTO) 0.1 10^3/uL (0.0-0.3); EOSINOPHILS % (AUTO) 1 % (0-10); HEMATOCRIT 48 % (40-54); HEMOGLOBIN 17.2 g/dL (13.3-17.7); LYMPHOCYTES # (AUTO) 2.7 10^3/uL (1.0-4.0); LYMPHOCYTES % (AUTO) 23 % (12-44); MEAN CORPUSCULAR HEMOGLOBIN 31 pg (25-34); MEAN CORPUSCULAR HGB CONC 36 g/dL (32-36); MEAN CORPUSCULAR VOLUME 86 fL (80-99); MEAN PLATELET VOLUME 10.1 fL (9.0-12.2); MONOCYTES # (AUTO) 0.9 10^3/uL (0.0-1.0); MONOCYTES % (AUTO) 7 % (0-12); NEUTROPHILS # (AUTO) 8.2 10^3/uL (1.8-7.8); NEUTROPHILS % (AUTO) 69 % (42-75); PLATELET COUNT 347 10^3/uL (130-400); WHITE BLOOD COUNT 11.9 10^3/uL (4.3-11.0)
[2022-08-17 14:35] LABS: ALBUMIN 4.4 GM/DL (3.2-4.5)
[2022-08-17 14:36] LABS: POTASSIUM 4.2 MMOL/L (3.6-5.0)
[2022-08-17 14:37] LABS: CALCIUM 10.5 MG/DL (8.5-10.1)
[2022-08-17 14:38] LABS: TOTAL PROTEIN 8.5 GM/DL (6.4-8.2)
[2022-08-17 14:40] LABS: BILIRUBIN,TOTAL 0.8 MG/DL (0.1-1.0)
[2022-08-17 14:42] LABS: CREATININE SERUM 0.84 MG/DL (0.60-1.30)
--- NOTE | 2022-08-17 14:45 | Diagnostic Imaging Report ---
EXAMINATION: Abdominal series and chest radiograph HISTORY: Constipation, abd pain COMPARISON: None available. FINDINGS: Heart size and pulmonary vasculature are normal. The lungs are clear without consolidation, pleural effusion, or pneumothorax. The osseous structures are intact. There is moderate amount of gas and stool throughout the colon. Nonobstructive bowel gas pattern. No radiopaque foreign body. The osseous structures are intact. IMPRESSION: No acute abnormality in the chest or abdomen. Dictated by: Dictated on workstation # [id number]
[2022-08-17] MEDS ORDERED: RX-ONDANSETRON 4 MG ODT (ZOFRAN) PPK #4 PO STA (15:24)
[2022-08-17] MEDS ORDERED: LACTULOSE SYRUP 10GM/15ML (ENULOSE) 30ML UDC PO ONE (15:30)
[2022-08-17 15:40] VITALS: BP 107/89
== END 2022-08-17 15:41 | disposition home or self-care (01) ==
LOC: EDUNIT# 13:08 → ER 13:10
DX: U07.1 COVID-19 (principal); F17.210 Nicotine dependence, cigarettes, uncomplicated; Z28.310 Unvaccinated for COVID-19
CPT/HCPCS: 36415; 74022; 80053; 85025; 87636